=== PATIENT | female | born 1990 | race Caucasian/White ===

== ENCOUNTER 2017-11-23 11:31 | Emergency (ER) | payer OTHER, MEDICAID ==
[~2017-11-23] VITALS: Ht 160 cm; Wt 112.5 kg
[~2017-11-23 11:31] MED LIST: ASPIR 8181 M1; CIPROFLOXACIN500 M1 PO; DOXYCYCLINE 10100 MG PO; FLEXERIL PO; FLOMAX0.4 MG PO; HYDROCODON-ACE1 EAC7 PO; HYDROCODONE-AP1 EAC6 PO; IBUPROFEN 800800 M1 PO; IBUPROFEN 800800 MG PO; LISINOPRIL2.5 MG PO; MEDROLDOSEPACK PO; NAPROSYN500 MG PO; NORCO 5-325 TA1 EAC1 PO; NORCO 5-325 TA1 EACH PO; ONDANSETRON HCL4 M2 PO; PERCOCET PO; PREDNISONE 20 M20 M1 PO; PREDNISONE 20 M20 MG PO; PREDNISONE50 MG PO; PROAIR HFA8.5 GM INH; PROMETHAZINE-D120 ML PO; PULMICORT0.5 MG/22 INH; TRINATE TABLET1 TAB; ULTRAM 50MG TAB50 MG PO; VENTOLIN HFA 1818 GM INH; VENTOLIN HFA INH8 GM IH; XANAX 0.25 MG0.25 MG; XANAX 0.5 MG0.5 MG PO; ZOFRAN ODT4 MG PO; ZPAK PO
[2017-11-23] MEDS ORDERED: ASPIR 8181 MG PO (11:45)
[2017-11-23] MEDS ORDERED: ACCUNEB SO1.25 MG/1 INH (11:45)
[2017-11-23 12:00] VITALS: BP 119/77
== END 2017-11-23 12:00 | disposition home or self-care (01) ==
LOC: M.ERS 11:31
DX: S61.215A Laceration without foreign body of left ring finger without damage to nail, initial encounter (principal); J45.909 Unspecified asthma, uncomplicated; I10 Essential (primary) hypertension; F17.210 Nicotine dependence, cigarettes, uncomplicated; Z88.0 Allergy status to penicillin; Z91.041 Radiographic dye allergy status; W26.0XXA Contact with knife, initial encounter; Y93.89 Activity, other specified; Y92.89 Other specified places as the place of occurrence of the external cause; Y99.8 Other external cause status

== ENCOUNTER 2018-09-07 23:01 | Emergency (ER) | payer OTHER, MEDICAID ==
[~2018-09-07] VITALS: Ht 157.5 cm; Wt 107.0 kg
[~2018-09-07 23:01] MED LIST changes: +ACCUNEB SO1.25 MG/1 INH; +ASPIR 8181 MG PO
[2018-09-07 23:25] LABS: ABSOLUTE BASOPHILS 0.1 thou/uL (0.0-0.2); ABSOLUTE EOSINOPHILS 0.3 thou/uL (0.0-0.7); ABSOLUTE LYMPHOCYTES 3.1 thou/uL (0.8-5.3); ABSOLUTE MONOCYTES 0.5 thou/uL (0.0-1.2); ABSOLUTE NEUTROPHILS 6.6 thou/uL (1.6-8.1); BASOPHILS 1.1 %; EOSINOPHILS 2.4 %; HEMATOCRIT 37.6 % (37.0-47.0); HEMOGLOBIN 12.7 gm/dL (12.0-15.0); LYMPHOCYTES 29.1 %; MCH 29.3 pg (26.0-34.0); MCHC 33.7 g/dL (28.0-37.0); MONOCYTES 4.8 %; MPV 7.4 fl. (7.2-11.1); NUCLEATED RBCS 0 /100WBC; PLATELET COUNT* 317 thou/uL (150-400); POLYS 62.6 %; RBC 4.32 mil/uL (4.20-5.00); RDW-CV 15.3 % (10.5-14.5); WBC 10.6 thou/uL (4.0-11.0)
[2018-09-07 23:37] LABS: ALBUMIN 3.7 g/dL (3.4-5.0); CALCIUM 8.8 mg/dL (8.5-10.1); POTASSIUM 4.2 mmol/L (3.5-5.1); TOTAL BILIRUBIN 0.2 mg/dL (<0.1-1.0); TOTAL PROTEIN 7.1 g/dL (6.4-8.2)
[2018-09-08 00:29] VITALS: BP 120/78
--- NOTE | 2018-09-08 17:05 | EKG ---
[place] [address] ELECTROCARDIOGRAM REPORT Name: GISELLE BENITEZ Room: [facility]#: [id number] Admission: 09/07/18 Attend Phys: Discharge: 09/08/18 Date of : [birth year] Report #: [id number] THIS REPORT FOR: //name// [facility] ED Test Date: 2018-09-07 Test Time: 23:51:45 Pat Name: GISELLE BENITEZ Department: Room: Gender: F Production Support Consultant: Stacey GIORDANO : 1990 Requested By: Jeremiah Aguiar Order Number: [id number] MD: Daniel Artis Measurements Intervals [place] Rate: 69 P: 24 NM: 162 QRS: 57 QRSD: 104 T: 35 QT: 414 QTc: 444 Interpretive Statements Sinus rhythm Compared to ECG 02/11/2014 01:05:40 No significant changes Electronically Signed On 09-08-2018 17:05:04 CDT by Daniel Artis [email or web address] <ELECTRONICALLY SIGNED> By: Daniel Artis MD, [facility] 09/08/18 1705 50 50 Daniel Artis MD, FACC /EPI
== END 2018-09-08 00:29 | disposition home or self-care (01) ==
LOC: M.ERS 23:01
PROVIDERS: Family Medicine
DX: R42 Dizziness and giddiness (principal); J45.909 Unspecified asthma, uncomplicated; I10 Essential (primary) hypertension; F17.210 Nicotine dependence, cigarettes, uncomplicated; Z88.0 Allergy status to penicillin; Z88.8 Allergy status to other drugs, medicaments and biological substances; Z91.041 Radiographic dye allergy status

== ENCOUNTER 2018-11-22 13:26 | Emergency (ER) | payer OTHER, MEDICAID ==
[~2018-11-22] VITALS: Ht 160 cm; Wt 99.8 kg
[2018-11-22] MEDS ORDERED: NABUMETONE 750750 M1 PO (14:31)
[2018-11-22] MEDS ORDERED: CRUTCHES MISCELL (14:35)
[2018-11-22 14:42] VITALS: BP 133/90
== END 2018-11-22 14:42 | disposition home or self-care (01) ==
LOC: M.ERS 13:26
DX: S93.492A Sprain of other ligament of left ankle, initial encounter (principal); F17.210 Nicotine dependence, cigarettes, uncomplicated; J45.909 Unspecified asthma, uncomplicated; I10 Essential (primary) hypertension; Z88.0 Allergy status to penicillin; Z91.041 Radiographic dye allergy status; Z88.8 Allergy status to other drugs, medicaments and biological substances; X50.1XXA Overexertion from prolonged static or awkward postures, initial encounter; Y92.89 Other specified places as the place of occurrence of the external cause; Y93.89 Activity, other specified; Y99.8 Other external cause status

== ENCOUNTER 2020-05-07 19:48 | Emergency (ER) | payer OTHER, MEDICAID ==
[~2020-05-07] VITALS: Ht 157.5 cm; Wt 104.3 kg
[~2020-05-07 19:48] MED LIST changes: +CRUTCHES MISCELL; +NABUMETONE 750750 M1 PO
[2020-05-07 20:49] LABS: ABSOLUTE BASOPHILS 0.2 thou/uL (0.0-0.2); ABSOLUTE EOSINOPHILS 0.3 thou/uL (0.0-0.7); ABSOLUTE LYMPHOCYTES 3.1 thou/uL (0.8-5.3); ABSOLUTE MONOCYTES 0.6 thou/uL (0.0-1.2); ABSOLUTE NEUTROPHILS 8.2 thou/uL (1.6-8.1); BASOPHILS 1.3 %; EOSINOPHILS 2.8 %; HEMATOCRIT 38.1 % (37.0-47.0); HEMOGLOBIN 12.7 gm/dL (12.0-15.0); LYMPHOCYTES 25.2 %; MCH 28.8 pg (26.0-34.0); MCHC 33.2 g/dL (28.0-37.0); MCV 86.7 fL (80.0-100.0); MONOCYTES 4.6 %; MPV 6.9 fl. (7.2-11.1); NUCLEATED RBCS 0 /100WBC; PLATELET COUNT* 325 thou/uL (150-400); POLYS 66.1 %; RDW-CV 15.2 % (10.5-14.5); WBC 12.4 thou/uL (4.0-11.0)
[2020-05-07 21:02] LABS: CREATININE 0.8 mg/dL (0.6-1.3); POTASSIUM 4.1 mmol/L (3.5-5.1)
[2020-05-07 21:07] LABS: ALBUMIN 3.3 g/dL (3.4-5.0); TOTAL BILIRUBIN 0.1 mg/dL (<0.1-1.0); TOTAL PROTEIN 7.1 g/dL (6.4-8.2)
[2020-05-07 21:14] LABS: INFLUENZA A ANTIGEN Negative (Negative); INFLUENZA B ANTIGEN Negative (Negative)
[2020-05-07] MEDS ORDERED: DOXYCYCLINE 10100 MG PO (22:02)
[2020-05-07] MEDS ORDERED: VENTOLIN HFA 1818 GM INH (22:02)
[2020-05-07 22:21] VITALS: BP 120/73
--- NOTE | 2020-05-08 09:19 | EKG ---
[place] [address] ELECTROCARDIOGRAM REPORT Name: GISELLE BENITEZ Room: [facility]#: [id number] Admission: 05/07/20 Attend Phys: Discharge: 05/07/20 Date of : [birth year] Date of Service: 05/07/202042 Report #: [id number] THIS REPORT FOR: //name// [facility] ED Test Date: 2020-05-07 Test Time: 20:43:26 Pat Name: GISELLE BENITEZ Department: Room: Gender: F Splicing Supervisor: [place] : 1990 Requested By: Oumou Velasquez Order Number: [id number] MD: Juan R Phillips Measurements Intervals [place] Rate: 83 P: 36 PA: 163 QRS: 73 QRSD: 100 T: 47 QT: 370 QTc: 435 Interpretive Statements Sinus rhythm Low voltage, precordial leads Compared to ECG 09/07/2018 23:51:45 no change Electronically Signed On 05-08-2020 9:18:58 LEGAL DOCUMENT ASSISTANT by Juan R Phillips [email or web address] <ELECTRONICALLY SIGNED> By: Juan R Phillips MD, [facility] 05/08/20 0918 42 42 Juan R Phillips MD, [facility] /EPI
== END 2020-05-07 22:22 | disposition home or self-care (01) ==
LOC: M.ERS 19:48
PROVIDERS: Nurse Practitioner Family
DX: J18.9 Pneumonia, unspecified organism (principal); Z20.828 Contact with and (suspected) exposure to other viral communicable diseases; I10 Essential (primary) hypertension; J45.909 Unspecified asthma, uncomplicated; Z88.0 Allergy status to penicillin; Z88.8 Allergy status to other drugs, medicaments and biological substances; Z90.710 Acquired absence of both cervix and uterus

== ENCOUNTER 2020-07-20 18:24 | Emergency (ER) | payer OTHER, MEDICAID ==
[~2020-07-20] VITALS: Ht 157.5 cm; Wt 95.3 kg
[2020-07-20] MEDS ORDERED: CIPROFLOXIN HC2.5 M1 OPHTHALMIC (18:53)
[2020-07-20 19:02] VITALS: BP 124/70
== END 2020-07-20 19:03 | disposition home or self-care (01) ==
LOC: M.ERS 18:24
DX: S05.01XA Injury of conjunctiva and corneal abrasion without foreign body, right eye, initial encounter (principal); I10 Essential (primary) hypertension; J45.909 Unspecified asthma, uncomplicated; F17.210 Nicotine dependence, cigarettes, uncomplicated; Z88.0 Allergy status to penicillin; Z91.041 Radiographic dye allergy status; Z88.8 Allergy status to other drugs, medicaments and biological substances; X58.XXXA Exposure to other specified factors, initial encounter; Y93.89 Activity, other specified; Y92.89 Other specified places as the place of occurrence of the external cause; Y99.8 Other external cause status

== ENCOUNTER 2021-02-23 14:39 | Emergency (ER) | payer OTHER, MEDICAID ==
[~2021-02-23] VITALS: Ht 157.5 cm; Wt 99.8 kg
[~2021-02-23 14:39] MED LIST changes: +CIPROFLOXIN HC2.5 M1 OPHTHALMIC
[2021-02-23 15:12] LABS: URINE BILIRUBIN NEGATIVE (Negative); URINE BLOOD 3+ (Negative); URINE COLOR YELLOW; URINE GLUCOSE-RANDOM NEGATIVE (Negative); URINE KETONES NEGATIVE (Negative); URINE NITRITE-REFLEX NEGATIVE (Negative); URINE PROTEIN NEGATIVE (Negative); URINE SPECIFIC GRAVITY 1.025 (1.005-1.030); URINE UROBILINOGEN 0.2 E.U./dl (0.2-1.0)
[2021-02-23 15:14] LABS: ABSOLUTE BASOPHILS 0.1 thou/uL (0.0-0.2); ABSOLUTE EOSINOPHILS 0.2 thou/uL (0.0-0.7); ABSOLUTE LYMPHOCYTES 2.3 thou/uL (0.8-5.3); ABSOLUTE MONOCYTES 0.5 thou/uL (0.0-1.2); ABSOLUTE NEUTROPHILS 6.2 thou/uL (1.6-8.1); BASOPHILS 0.9 %; EOSINOPHILS 2.5 %; HEMATOCRIT 41.4 % (37.0-47.0); HEMOGLOBIN 13.8 gm/dL (12.0-15.0); LYMPHOCYTES 24.8 %; MCH 28.9 pg (26.0-34.0); MCHC 33.4 g/dL (28.0-37.0); MCV 86.6 fL (80.0-100.0); MONOCYTES 5.1 %; MPV 7.1 fl. (7.2-11.1); NUCLEATED RBCS 0 /100WBC; PLATELET COUNT* 305 thou/uL (150-400); POLYS 66.7 %; RBC 4.78 mil/uL (4.20-5.00); RDW-CV 15.3 % (10.5-14.5); WBC 9.3 thou/uL (4.0-11.0)
[2021-02-23 15:14] LABS: URINE CLARITY CLOUDY; URINE LEUKOCYTES-REFLEX 3+ (Negative)
[2021-02-23 15:22] LABS: SQUAMOUS >10 Many /LPF (0-3); URINE WBC-REFLEX >25 Many /HPF (0-5)
[2021-02-23 15:23] LABS: BACTERIA-REFLEX >30 Many /HPF (None Seen); CASTS None Seen /LPF (None Seen); CRYSTALS None Seen /LPF (None Seen); URINE RBC 3-10 Few /HPF (0-2)
[2021-02-23 15:24] LABS: CALCIUM 8.8 mg/dL (8.5-10.1)
[2021-02-23 15:29] LABS: ALBUMIN 3.8 g/dL (3.4-5.0); TOTAL BILIRUBIN 0.3 mg/dL (<0.1-1.0); TOTAL PROTEIN 7.5 g/dL (6.4-8.2)
[2021-02-23] MEDS ORDERED: LOPERAMIDE 2 MG2 M1 PO (16:33)
[2021-02-23] MEDS ORDERED: ONDANSETRON ODT4 MG PO (16:33)
[2021-02-23] MEDS ORDERED: CEPHALEXIN500 MG PO (17:04)
[2021-02-23 17:17] VITALS: BP 136/73
== END 2021-02-23 17:18 | disposition home or self-care (01) ==
LOC: M.ERS 14:39
PROVIDERS: Physician Assistant
DX: N39.0 Urinary tract infection, site not specified (principal)

== ENCOUNTER 2021-06-03 10:35 | Emergency (ER) | payer OTHER, MEDICAID ==
[~2021-06-03] VITALS: Ht 157.5 cm; Wt 113.4 kg
[~2021-06-03 10:35] MED LIST changes: +CEPHALEXIN500 MG PO; +LOPERAMIDE 2 MG2 M1 PO; +ONDANSETRON ODT4 MG PO
[2021-06-03 12:15] LABS: INFLUENZA A ANTIGEN Negative (Negative); INFLUENZA B ANTIGEN Negative (Negative)
[2021-06-03] MEDS ORDERED: PREDNISONE50 MG PO (12:58)
[2021-06-03] MEDS ORDERED: TESSALON PERLE100 MG PO (12:58)
[2021-06-03 13:15] VITALS: BP 133/91
== END 2021-06-03 13:15 | disposition home or self-care (01) ==
LOC: M.ERS 10:35
PROVIDERS: Nurse Practitioner Family
DX: J06.9 Acute upper respiratory infection, unspecified (principal); Z20.822 Contact with and (suspected) exposure to COVID-19; I10 Essential (primary) hypertension; J45.909 Unspecified asthma, uncomplicated; E03.9 Hypothyroidism, unspecified; F17.210 Nicotine dependence, cigarettes, uncomplicated; Z88.0 Allergy status to penicillin; Z91.02 Food additives allergy status

== ENCOUNTER 2021-06-05 12:00 | Emergency (ER) | payer OTHER, MEDICAID ==
[~2021-06-05] VITALS: Ht 157.5 cm; Wt 113.4 kg
[~2021-06-05 12:00] MED LIST changes: +TESSALON PERLE100 MG PO
[2021-06-05] MEDS ORDERED: CLINDAMYCIN HC300 MG PO (16:49)
[2021-06-05 17:05] VITALS: BP 148/81
== END 2021-06-05 17:05 | disposition home or self-care (01) ==
LOC: M.ERS 12:00
DX: N75.8 Other diseases of Bartholin's gland (principal); I10 Essential (primary) hypertension; J45.909 Unspecified asthma, uncomplicated; E03.9 Hypothyroidism, unspecified; F17.210 Nicotine dependence, cigarettes, uncomplicated; Z88.0 Allergy status to penicillin; Z91.02 Food additives allergy status